=== PATIENT | female | born 1960 | race Caucasian/White ===

== ENCOUNTER 2017-06-04 01:41 | Day surgery (SDC) | payer OTHER ==
[~2017-06-04] VITALS: Ht 167.6 cm; Wt 82.6 kg
[~2017-06-04 01:41] MED LIST: ACY200 PO; ALP5 PO; BUSP30TA PO; CAPS60CR TP; CLARITIN; DULO60CA51 PO; ESCI20TA38 PO; GABA-549 PO; HYDR2TAB41 PO; IBU200 PO; IBU800 PO; OMEG-11 PO; PAN20 PO; PAN40 PO; PER PO; VALA100062 PO; VICODIN
[2017-06-04] MEDS ORDERED: PROPOFOL EMUL(*) 10MG/ML 20 ML 40 ML ONE (07:08)
--- NOTE | 2017-06-04 07:29 | Post Operative Progress Note ---
Post Operative Progress Note Date: Jun 04, 2017 Time: 11:45 Surgeon: eric Anesthesia: dr jason Pre-Op Diagnosis: screening colonoscopy Post-Op Diagnosis: 2 mm polyp mat 50 cm and sigmoid divertiulosis Procedure(s): colonoscopy and polypectomy DEION ROMERO MD Jun 04, 2017 07:29
--- NOTE | 2017-06-04 07:30 | Short(Outpt) Discharge Summary ---
Discharge Summary Reason for Hosp/Final Diag: (1) Encounter for screening colonoscopy Hospital Course & Plan: 2 mm polyp at 50 cm and sigmoid diverticulosis Departure Discharge to: Home Discharge Instructions Home Meds Reported Medications Gabapentin (GABAPENTIN) 300 Mg Capsule, 300 MG PO TID Y for PAIN, CAPSULE 05/29/17 Alprazolam (Xanax) 0.5 Mg Tab, 0.5 MG PO TID, 0 Refills 07/07/10 Duloxetine Hcl (Cymbalta) 60 Mg Capsule.dr, 90 MG PO, 0 Refills 07/07/10 Acyclovir (Zovirax) 200 Mg Cap, 400 MG PO TID PRN, 0 Refills 07/07/10 Buspirone Hcl (Buspar) 30 Mg Tablet, 30 MG PO DAILY PRN, 0 Refills 07/07/10 Ibuprofen (Motrin) 200 Mg Tab, 200 MG PO PRN, #20 0 Refills 07/07/10 Discontinued Reported Medications Capsaicin (Zostrix) 60 Gm Cream.gm., 60 GM TP TID, #45 0 Refills 07/07/10 Valacyclovir Hcl (Valtrex) 1,000 Mg Tablet, 1000 MG PO TID, #21 0 Refills 07/07/10 Hydromorphone Hcl (Hydromorphone Hcl) 2 Mg Tablet, 2 MG PO Q4-6H, #30 0 Refills 07/07/10 [Claritin] No Conflict Check, 0 Refills 07/07/10 [Vicodin] No Conflict Check, 0 Refills 07/07/10 Pantoprazole Sod (Protonix) 40 Mg Tabec, 40 MG PO QDAY, 0 Refills 07/07/10 Diet: High Fiber Activity: As Tolerated DEION ROMERO MD Jun 04, 2017 07:30
[2017-06-04] MEDS ORDERED: NORMOSOL R SOLN(*) 1000 ML BAG 1,000 ML IV PRN (09:55)
[2017-06-04] MEDS ORDERED: MIDAZOLAM 2 MG/2 ML VIAL IVP PRN (09:55)
[2017-06-04] MEDS ORDERED: LIDOCAINE/SOD BICARB 8.4% SYR ID ONE (09:55)
[2017-06-04 10:00] VITALS: BP 134/82
[2017-06-04 11:43] VITALS: BP 101/57
[2017-06-04 11:57] VITALS: BP 114/80
[2017-06-04 12:25] VITALS: BP 130/88
[2017-06-04 12:35] VITALS: BP 136/94
[2017-06-04 12:37] VITALS: BP 129/89
--- NOTE | 2017-06-04 21:32 | OPERATIVE REPORT 1 ---
EVENT DATE: June 04, 2017 SURGEON: Misael Serrano MD ANESTHESIOLOGIST: Nnamdi Fernández MD ANESTHESIA: Sedation. PREOPERATIVE DIAGNOSIS Screening colonoscopy. POSTOPERATIVE DIAGNOSES 1. Sigmoid diverticula. 2. A 2 mm polyp at 50 cm. PROCEDURE PERFORMED Colonoscopy with polypectomy. DESCRIPTION OF PROCEDURE The patient was placed in the left lateral decubitus position and given intravenous sedation. The flexible colonoscope was inserted and advanced to the cecum. She had an excellent bowel prep. Ileocecal valve, base of the cecum , and appendiceal orifice were identified. The scope was slowly withdrawn. Care was taken to look behind the haustral folds. No abnormalities were noted in the cecum, right colon, transverse, or descending colon. At 55 cm, she had a small, 2 mm projection. This was removed with the cold cup. The rest of the sigmoid colon was normal. Rectum was normal. The scope was retroflexed. That appeared to be normal. This patient will require a repeat colonoscopy in five years if this is an adenomatous polyp. [email or web address]
== END 2017-06-04 13:02 | disposition home or self-care (01) ==
LOC: OR 01:41
PROVIDERS: ATTEND Surgery
DX: Z12.11 Encounter for screening for malignant neoplasm of colon (principal); K63.5 Polyp of colon
CPT/HCPCS: 00811; 45380; 88305; J2704

== ENCOUNTER → 2017-06-23 | Outpatient (CLI) | payer SELFPAY ==
[~2017-06-23] MED LIST changes: +IOPAMIDOL 76% 75 ML INFUS BTL 75 ML ONE; +NS 0.9% 20 ML SDV 40 ML ONE
[2017-06-23 13:28] LABS: PLATELET COUNT, AUTOMATED 177 K/uL (150-450)
--- NOTE | 2017-06-23 15:16 | RADIOLOGY IMAGING REPORT ---
[place] [facility] [place] NAME: Tamara Mitchell : 1960 MR: [id number] V: [id number] EXAM DATE: ORDERING PHYSICIAN: AZAEL VILLEGAS TECHNOLOGIST: Location: [facility] Patient: Tamara Mitchell : 1960 Visit/Account:[id number] Date of Sevice: 06/23/2017 EXAMINATION: CT abdomen and pelvis with IV contrast HISTORY: Abdominal pain. Bloody diarrhea. Diverticulosis. TECHNIQUE: Axial CT images of the abdomen and pelvis were obtained with IV contrast, with coronal a nd sagittal 2D reconstructed images. One of the following dose optimization techniques was utilized in the performance of this exam: Autom ated exposure control; adjustment of the mA and/or kV according to the patient's size; or use of an i terative reconstruction technique. Specific details can be referenced in the facility's radiology C T exam operational policy. Contrast: 75 mL of IV [id number]. COMPARISON: 02/06/2009. FINDINGS: Liver: Negative. Gallbladder and bile ducts: Negative. Spleen: Negative. Pancreas: Negative. Adrenal glands: Negative. Kidneys: Single 3.5 cm cortical cyst along the lower pole of the right kidney. No urinary calculi or hydronephrosis. The kidneys enhance normally. Bowel and peritoneum: There is moderate diffuse colonic wall thickening along the left colon, extend ing from the splenic flexure to the rectum, with mild pericolonic stranding and some associated mesen teric edema. CT appearance is compatible with an infectious or inflammatory colitis. No discrete colo malena diverticula are visualized. Trace amount of free fluid in the pelvis. No free intraperitoneal air . No pericolonic abscess or fluid collection. The upstream small bowel and colon are normal in caliber. No bowel obstruction. The appendix is not d iscretely visualized in the right abdomen. It may be atrophic or surgically absent. Pelvic structures: Negative. Lymph node assessment: Negative. Vessels: Negative. Musculoskeletal: Negative. Body wall: Negative. Lung bases: Negative. IMPRESSION: 1. Diffuse colonic wall thickening extending from the splenic flexure to the rectum, compatible with an infectious or inflammatory colitis. 2. Mild associated mesenteric edema with a trace amount of free fluid in the pelvis. 3. No pericolonic abscess or free intraperitoneal air. No upstream bowel obstruction. 4. No other acute intra-abdominal findings. Report Dictated By: Frank Bynum MD at 06/23/2017 3:04 PM Report E-Signed By: Frank Bynum MD at 06/23/2017 3:11 PM WSN:[id number]
== END ==
LOC: CT 13:01
PROVIDERS: ATTEND Nurse Practitioner Family
DX: N28.1 Cyst of kidney, acquired (principal)
CPT/HCPCS: 36415; 74177; 82728; 85025; J7050; Q9967; 82040; 82247; 82310; 82374; 82435; 82565; 82947; 84075; 84132; 84155; 84295; 84450; 84460; 84520

== ENCOUNTER → 2017-06-30 | Outpatient (CLI) | payer OTHER ==
[~2017-06-30] MED LIST changes: -IOPAMIDOL 76% 75 ML INFUS BTL 75 ML ONE; -NS 0.9% 20 ML SDV 40 ML ONE
--- NOTE | 2017-06-30 17:32 | RADIOLOGY IMAGING REPORT ---
F[place] [facility] [place]IENT NAME: CATHERINE JONES : [id number] MR: [id number] V: [id number] EXAM DATE: ORDERING PHYSICIAN: AZAEL VILLEGAS TECHNOLOGIST: Ciara Valverde PROCEDURE:BILATERAL DIGITAL SCREENING MAMMOGRAM WITH CAD ASSISTED INTERPRETATION & 3D TOMOSYNTHESIS COMPARISON:None. INDICATIONS:SCREENING FINDINGS: Moderately heterogeneous fibroglandular tissue is seen throughout the breasts. There is no evidence of malignant appearing mass, malignant appearing calcifications or other secondary sign of malignancy in either breast. DIAGNOSTIC CATEGORY 1--NEGATIVE. RECOMMENDATIONS: ROUTINE MAMMOGRAM AND CLINICAL EVALUATION. IMPRESSION: BIRADS 1: Negative No significant abnormality is seen Dictated by: Kiley Peña M.D. on 06/30/2017 at 10:49 Transcribed by: RICCO on 06/30/2017 at 13:15 Approved by: Kiley Peña M.D. on 06/30/2017 at 17:31 [facility]
== END ==
LOC: MAMO 02:27
PROVIDERS: ATTEND Nurse Practitioner Family
DX: Z12.31 Encounter for screening mammogram for malignant neoplasm of breast (principal)
CPT/HCPCS: 77063; 77067

== ENCOUNTER → 2017-07-15 | Outpatient (REF) | payer OTHER | LOC: ZZSENDIN 12:00 | PROVIDERS: ATTEND Student in an Organized Health Care Education/Training Program | DX: Z12.4 Encounter for screening for malignant neoplasm of cervix (principal); Z11.51 Encounter for screening for human papillomavirus (HPV) ==